=== PATIENT | male | born 1985 | race African-American/Black ===

== ENCOUNTER 2022-01-20 00:36 | Emergency (ER) | payer OTHER ==
[2022-01-20] MEDS ORDERED: Boostrix 0.5 ML (Tdap) VIAL (>/=7 yrs of age) ONE (01:12)
== END 2022-01-20 01:57 ==
LOC: NAV ERS 00:36
DX: S01.81XA Laceration without foreign body of other part of head, initial encounter (principal); S01.312A Laceration without foreign body of left ear, initial encounter; Y04.0XXA Assault by unarmed brawl or fight, initial encounter; Z23 Encounter for immunization
CPT/HCPCS: 12011; 90471; 90715